=== PATIENT | female | born 1955 | race Caucasian/White ===

== ENCOUNTER → 2017-12-09 | Day surgery (SDC) | payer OTHER ==
--- NOTE | 2017-12-12 11:43 | OP ---
DATE OF OPERATION: 12/09/2017 PREOPERATIVE DIAGNOSIS: Left breast mass 4 o'clock retroareolar and left breast complex cyst 12 o'clock 1 cm from the nipple. POSTOPERATIVE DIAGNOSIS: Left breast mass 4 o'clock retroareolar and left breast complex cyst 12 o'clock 1 cm from the nipple. PROCEDURE: Left ultrasound-guided core biopsy of the mass and left ultrasound-guided cyst aspiration. ANESTHESIA: Local. ATTENDING SURGEON: Madelyn Rodriguez MD ESTIMATED BLOOD LOSS: Minimal. COMPLICATIONS: None. DESCRIPTION OF PROCEDURE: The patient was made aware of the risks and benefits of the procedure and consented. She was placed in a supine position. The left 4 o'clock retroareolar region was approached first. Under sterile conditions, with 1% lidocaine for local anesthesia, a small nicole was made in the skin. Using a 13-gauge suction biopsy device via lateral approach under ultrasound guidance, multiple cores were obtained and submitted to Pathology. Likewise, under ultrasound guidance, a bowtie clip was placed into the biopsy region. Again, under sterile conditions with 1% lidocaine for local anesthesia, the 12 o'clock region was approached using 18-gauge needle under ultrasound guidance. A small amount of fluid was aspirated that was nonbloody. The cyst was decompressed with no residual nodularity. Steri-Strips and a sterile bandage were then applied, and the patient tolerated the procedure well. We will contact her with results. MADELYN RODRIGUEZ M.D. [id number]
--- NOTE | 2017-12-12 15:55 | PATH ---
Surgical Pathology Report Patient Name: ANNE HOLGUIN [facility]. Rec. #: [id number] /Age/Gender: 1955 (Age: 62) / F Account: [id number] Location: [facility] RADIOLOGY U Taken: 12/09/2017 Received: 12/09/2017 Reported: 12/12/2017 Physicians: Madelyn Rodriguez M.D. 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 Electronically Signed Tia Bray M.D. Gross Description Received in formalin labeled "left breast biopsy 4N retro," are 6 buck-yellow, cylindrical portions of fibroadipose tissue ranging from 1.1-1.8 cm in length and averaging 0.1 cm in diameter. The specimens are submitted in toto in one cassette. Time to formalin fixation: < 1 minute Total formalin fixation time: Approximately 10 hours. 12/09/2017 saudi12/09/2017
== END | disposition home or self-care (01) ==
LOC: FRADUS-SUR 11:30
PROVIDERS: ATTEND Surgery Surgical Oncology
PROC: 0HBU3ZX Excision of Left Breast, Percutaneous Approach, Diagnostic (ICD-10-PCS; principal; 2017-12-09)
PROC: BH41ZZZ Ultrasonography of Left Breast (ICD-10-PCS; 2017-12-09)
PROC: 0H9U3ZX Drainage of Left Breast, Percutaneous Approach, Diagnostic (ICD-10-PCS; 2017-12-09)
DX: D24.2 Benign neoplasm of left breast (principal); N63.20 Unspecified lump in the left breast, unspecified quadrant; N60.02 Solitary cyst of left breast; N60.12 Diffuse cystic mastopathy of left breast; N60.82 Other benign mammary dysplasias of left breast
CPT/HCPCS: 19083; 76942-TC; 77065-TC; 88305-TC